=== PATIENT | female | born 1960 | race African-American/Black ===

== ENCOUNTER 2024-01-03 15:06 | Outpatient (AMB) | payer OTHER, SELFPAY ==
--- NOTE | 2024-01-03 15:11 | A.OFFVIS_ITS ---
Vital Signs 01/03/24 15:17 Height 5 ft 2 in Weight 175 lb BMI 32.0 BP 126/70 Blood Pressure Location Rt brachial Position Sitting Pulse 60 Pulse Source Pulse Oximeter Pulse Oximetry (%) 100 Oxygen Delivery Method Room Air Intake Visit Reasons: [id number] Intake Note: Patient presents fort narcolepsy Allergies acetaminophen [From Percocet] Allergy (Severe, Verified 12/29/23 11:49) THROAT SWELLING oxycodone [From Percocet] Allergy (Severe, Verified 12/29/23 11:49) THROAT SWELLING hydrocodone [From Vicodin] Allergy (Unknown, Verified 12/29/23 11:49) Unknown Sulfa (Sulfonamide Antibiotics) Allergy (Unknown, Verified 12/29/23 11:49) Unknown BACTRIM Allergy (Unknown, Uncoded 12/29/23 11:49) Unknown HPI Comments Details: 63-yr-old female presents for new in-person patient visit for sleep consultation concerning for narcolepsy. Patient reports she has symptoms of excessive daytime sleepiness. Her father had narcolepsy- easily fell asleep even during conversations. Her sister has narcolepsy and uses a CPAP- and can still easily fall asleep. Pt herself has had excessive daytime sleepiness, has poor sleep quality- has knee pain, hands tingling, body pains. Is easily awakened. Wakes up exhausted. She has always needed to be active to stay awake- even when in school. Sleep questionnaire: Have you ever been diagnosed with a sleep disorder? No Have you ever had a sleep study in the past? No Have you ever been treated for a sleep disorder? No Do you take medications for a sleep disorder? Taking Tylenol PM. Do you have difficulty initiating sleep? No Do you have difficulty maintaining sleep? Yes Do you wake up tired? Yes Do you have daytime tiredness or fatigue? Yes Do you easily fall asleep when inactive? Yes Do you snore? Yes Do you wake up gasping at night? No Do you have episodes of apneas? No Do you have episodes of nocturnal chest pain or dyspnea? Occasional shoulder/chest pain- now thinks r/t carpal tunnel syndrome. She is scheduled for a LUE EMG/NCS. Do you have bruxism? No Do you have headaches upon awakening? Yes- dull cloudy headache, hot shower helps. Do you wake up with dry mouth or throat? Some Do you have GERD? No Do you have nocturia? Yes- she thinks because she drinks a lot of water Do you have nocturnal leg cramps? Yes- at rest- recently was told she has plantar fascitis- and was referred to PT. Do you have symptoms of restless legs? Yes, and has heaviness. She is f/b vascular. Using compression stockings which helps- even on a 6-7 [address] ride. Do you act out your dreams? Has vivid dreams. Has PTSD r/t her son's (murdered)- and she is yelling and resisting. Do you have sleep paralysis? No Do you ever have hypnogenic hallucinations? Has woken up feeling that the dream is real. Do you dream quickly? Yes. Hypersomnolence questionnaire: Have you ever had episodes of sudden weakness? Denies Have you ever had episodes of sudden weakness associated with strong emotions? Denies. If she is overwhelmed, she can sleep easily. Sleep hygiene questionnaire: What is your usual sleep routine? Usual bedtime is at 10pm; Usual wake-up time is at 7-8:30am (depending on grandchildren's school schedule). Do you take naps? Yes- when time permits Is your sleep environment cool, dark, and quiet? Yes Do you exercise? Working on walking/exercising more Do you take caffeine or other stimulants? Drinking mushroom coffee- 1 in the am. Taking matcha tea as well. Do you use electronics in bed? Yes- phone, may scroll through emails but then puts it down. May watch TV when she wakes up. What is your work schedule? 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 [facility] Medical History (Updated 01/03/24 @ 16:06 by PILAR Ordonez) Anemia Osteoarthritis Cardiac murmur, unspecified HTN (hypertension) Type 2 diabetes mellitus Ascending aortic aneurysm Hyperlipidemia Surgical History H/O: hysterectomy H/O total knee replacement Hx laparoscopic cholecystectomy Family History Mother HTN (hypertension) Alzheimer dementia Father Diabetes Sister Diabetes Social History (Reviewed 01/03/24 @ 15:18 by LINSEY Leal Alcohol intake: current Patient Tobacco Use Status: Former Tobacco user Physical Exam Vital Signs: Last Vital Signs Pulse 60 01/03/24 15:17 BP 126/70 01/03/24 15:17 Pulse Ox 100 01/03/24 15:17 Oxygen Delivery Method Room Air 01/03/24 15:17 BMI result Body Mass Index 32.0 Const General: no acute distress Orientation/consciousness: patient oriented x3 HEENT Other: Mallampati stage 4 Resp Effort & Inspection: normal respiratory effort and able to speak in complete sentences Neuro General: patient oriented x3 Psych Mental Status: mental status grossly normal Speech and movement: Clear speech present Attitude: cooperative Assessment & Plan Assessment & Plan (1) Excessive daytime sleepiness: Code(s): G47.19 - Other hypersomnia Category: Medical (2) Paresthesia of left upper extremity: Code(s): R20.2 - Paresthesia of skin Category: Medical (3) Muscle cramps: Code(s): R25.2 - Cramp and spasm Category: Medical (4) Hypersomnia: Code(s): G47.10 - Hypersomnia, unspecified Category: Medical (5) Snoring: Code(s): R06.83 - Snoring Category: Medical (6) Family history of narcolepsy: Code(s): Z82.0 - Family history of epilepsy and other diseases of the nervous system Category: Medical Plan Pt is advised to undergo: Labs to assess for common etiologies of daytime sleepiness, restlessness, and leg cramps. In-lab PSG w/ MSLT- to assess sleep quality and for hypersomnia vs narcolepsy. Advised to hold OTC sleep aides, such as Tylenol PM, benadryl for 2-3 weeks prior to the sleep study. Advised that if the baseline-PSG portion of study does show sleep apnea, the MSLT portion of study will not be completed until after sleep apnea tx is initiated. Monitor am headaches. Will f/u with pt after study to discuss results and appropriate treatment options. Pt to call with any worsening concerns or questions. Orders: Orders Vitamin B12 and Folate 01/04/24 D64.9 - Anemia, unspecified, E55.9 - Vitamin D deficiency, unspecified, E78.5 - Hyperlipidemia, unspecified, G47.10 - Hypersomnia, unspecified, I10 - Essential (primary) hypertension, R20.2 - Paresthesia of skin, R25.2 - Cramp and spasm TSH reflex Free T4 01/04/24 D64.9 - Anemia, unspecified, E55.9 - Vitamin D deficiency, unspecified, E78.5 - Hyperlipidemia, unspecified, G47.10 - Hypersomnia, unspecified, I10 - Essential (primary) hypertension, R20.2 - Paresthesia of skin, R25.2 - Cramp and spasm Vitamin D 25-OH (D2 and D3) 01/04/24 D64.9 - Anemia, unspecified, E55.9 - Vitamin D deficiency, unspecified, E78.5 - Hyperlipidemia, unspecified, G47.10 - Hypersomnia, unspecified, I10 - Essential (primary) hypertension, R20.2 - Par esthesia of skin, R25.2 - Cramp and spasm Complete Blood Count Auto Diff 01/04/24 D64.9 - Anemia, unspecified, E55.9 - Vitamin D deficiency, unspecified, E78.5 - Hyperlipidemia, unspecified, G47.10 - Hypersomnia, unspecified, I10 - Essential (primary) hypertension, R20.2 - Paresthesia of skin, R25.2 - Cramp and spasm Comprehensive Met. Panel 01/04/24 D64.9 - Anemia, unspecified, E55.9 - Vitamin D deficiency, unspecified, E78.5 - Hyperlipidemia, unspecified, G47.10 - Hypersomnia, unspecified, I10 - Essential (primary) hypertension, R20.2 - P aresthesia of skin, R25.2 - Cramp and spasm Magnesium 01/04/24 D64.9 - Anemia, unspecified, E55.9 - Vitamin D deficiency, unspecified, E78.5 - Hyperlipidemia, unspecified, G47.10 - Hypersomnia, unspecified, I10 - Essential (primary) hypertension, R20.2 - Paresthesia of skin, R25.2 - Cramp and spasm RT sleep testing - MSLT 01/03/24 G47.10 - Hypersomnia, unspecified, G47.19 - Other hypersomnia, R06.83 - Snoring, Z82.0 - Family history of epilepsy and other diseases of the nervous system RT PSG in-lab sleep study 01/03/24 G47.10 - Hypersomnia, unspecified, G47.19 - Other hypersomnia, R06.83 - Snoring, Z82.0 - Family history of epilepsy and other diseases of the nervous system Drug Screen Urine 01/04/24 G47.10 - Hypersomnia, unspecified, G47.19 - Other hypersomnia Creatine Kinase Total 01/04/24 D64.9 - Anemia, unspecified, E55.9 - Vitamin D deficiency, unspecified, E78.5 - Hyperlipidemia, unspecified, G47.10 - Hypersomnia, unspecified, I10 - Essential (primary) hypertension, R20.2 - Paresthesia of skin, R25.2 - Cramp and spasm Ferritin 01/04/24 D64.9 - Anemia, unspecified, E55.9 - Vitamin D deficiency, unspecified, E78.5 - Hyperlipidemia, unspecified, G47.10 - Hypersomnia, unspecified, I10 - Essential (primary) hypertension, R20.2 - Paresthesia of skin, R25.2 - Cramp and spasm IRON PROFILE 01/04/24 D64.9 - Anemia, unspecified, E55.9 - Vitamin D deficiency, unspecified, E78.5 - Hyperlipidemia, unspecified, G47.10 - Hypersomnia, unspecified, I10 - Essential (primary) hypertension, R20.2 - Paresthesia of skin, R25.2 - Cramp and spasm Coding Level of Care Code New Pt Level 4 (72384) Diagnoses Excessive daytime sleepiness G47.19 Paresthesia of left upper extremity R20.2 Muscle cramps R25.2 Hypersomnia G47.10 Snoring R06.83 Family history of narcolepsy Z82.0 [place] Sleepiness Scale Questions Sitting and reading: high chance of dozing Watching TV: high chance of dozing Sitting inactive in a theater, movie etc.: high chance of dozing As a passenger in a car for an hour without break: high chance of dozing Lying down in the afternoon when circumstances permit: high chance of dozing Sitting and talking to someone: high chance of dozing Sitting quietly after lunch without alcohol: high chance of dozing In a car, while stopped for a few minutes in the traffic: slight chance of dozing ESS < 10: normal, ESS > 12: pathologic: 22
[2024-01-03 15:17] VITALS: BP 126/70; PULSE 60; O2SAT 100; BMI 32.0
== END 2024-01-03 16:17 | disposition home or self-care (01) ==
PROVIDERS: PCP Internal Medicine; Visit Provider Nurse Practitioner Family
DX: G47.19 Other hypersomnia (principal); R20.2 Paresthesia of skin; R25.2 Cramp and spasm; G47.10 Hypersomnia, unspecified; R06.83 Snoring; Z82.0 Family history of epilepsy and other diseases of the nervous system
CPT/HCPCS: 99204

== ENCOUNTER → 2024-01-03 15:06 | Outpatient (BNVA) | payer OTHER, SELFPAY | PROVIDERS: PCP Internal Medicine; Visit Provider Nurse Practitioner Family | DX: G47.19 Other hypersomnia (principal); G47.10 Hypersomnia, unspecified; R20.2 Paresthesia of skin; R25.2 Cramp and spasm; R06.83 Snoring; Z82.0 Family history of epilepsy and other diseases of the nervous system | CPT/HCPCS: 99202 ==

== ENCOUNTER 2024-01-04 13:00 | Outpatient (REF) | payer OTHER, SELFPAY ==
[2024-01-04 17:41] LABS: MANUAL DIFF FLAG NO
[2024-01-04 17:54] LABS: Amphetamine Screen Urine Not Detected (Not Detect); Barbiturates, Urine Not Detected (Not Detect); Benzodiazepines Screen Urine Not Detected (Not Detect); Buprenorphine Scr Not Detected (Not Detect); Cannabinoid Screen Urine Not Detected (Not Detect); Cocaine Screen Urine Not Detected (Not Detect); Fentanyl, urine Not Detected (Not Detect); Methadone Screen, Urine Not Detected (Not Detect); Opiate Screen Urine Not Detected (Not Detect); Oxycodone Screen Urine Not Detected (Not Detect); Phencyclidine Screen Urine Not Detected (Not Detect)
[2024-01-04 17:57] LABS: Basophils Percent Auto 0.4 % (0-2); Eosinophils Absolute Auto 0.1 X10*3/uL (0.0-0.4); Eosinophils Percent Auto 0.9 % (0-4); Hematocrit 42.8 % (37.0-47.0); Hemoglobin 14.3 g/dl (12.0-16.0); Imm Gran Abs Auto 0.01 X10*3/uL (0.00-0.03); Imm Gran Pct Auto 0.2 % (0.0-0.4); Lymphocytes Absolute Auto 1.3 X10*3/uL (1.2-4.9); Lymphocytes Percent Auto 24.8 % (20-40); Mean Corpuscular HGB Conc 33.4 g/dl (31.0-35.0); Mean Corpuscular Hemoglobin 28.8 pg (27.0-33.0); Mean Corpuscular Volume 86.1 fL (80.0-98.0); Mean Platelet Volume 10.8 fL (9.4-12.3); Monocytes Absolute Auto 0.5 X10*3/uL (0.1-1.2); Monocytes Percent Auto 9.4 % (2-11); Neutrophils Absolute Auto 3.4 x10*3/uL (2.0-8.3); Neutrophils Percent Auto 64.3 % (45-73); Platelet Count 253 X10*3/uL (160-400); Red Blood Count 4.97 X10*6/uL (4.20-5.50); Red Cell Distribution Width 13.9 % (11.0-16.0); White Blood Count 5.3 X10*3/uL (4.8-10.8)
[2024-01-04 18:12] LABS: Alanine Aminotransferase 19 U/L (0-31); Albumin Level 4.6 g/dL (3.5-5.0); Alkaline Phosphatase 59 U/L (39-117); Anion Gap 11 (12-20); Aspartate Amino Transferase 16 U/L (5-31); Bilirubin Total 0.9 mg/dL (0.0-1.0); Blood Urea Nitrogen 13 mg/dL (9-16); Calcium 9.6 mg/dL (8.4-10.2); Carbon Dioxide 30 mmol/L (22-29); Chloride 103 mmol/L (96-108); Estimated Glomerular Filt Rate > 60; Glucose Random 117 mg/dL (60-115); Iron 79 mcg/dL (30-160); Percent Iron Saturation 27 % (15-50); Potassium 3.4 mmol/L (3.3-5.1); Sodium 141 mmol/L (135-145); Total Iron Binding Capacity 296 mcg/dL (228-428); Total Protein 7.6 g/dL (6.5-8.0); Unsaturated Iron Binding 217 ug/dL
[2024-01-04 18:31] LABS: Ferritin 222 ng/mL (10-250); TSH reflex Free T4 0.87 uIU/mL (0.32-4.0)
[2024-01-04 18:38] LABS: Folate 12.2 ng/mL (> or = 4.0); Vitamin B12 439 pg/mL (200-900)
[2024-01-08 17:24] LABS: Vitamin D 25-OH, D2 <4 ng/mL; Vitamin D 25-OH, D3 27 ng/mL; Vitamin D 25-OH, Total 27 ng/mL (30-100)
== END 2024-01-04 13:01 | disposition home or self-care (01) ==
LOC: HO.HKASLDS 13:00
PROVIDERS: Visit Provider Nurse Practitioner Family
DX: D64.9 Anemia, unspecified (principal); R25.2 Cramp and spasm; R20.2 Paresthesia of skin; E55.9 Vitamin D deficiency, unspecified; E78.5 Hyperlipidemia, unspecified; I10 Essential (primary) hypertension; G47.19 Other hypersomnia
CPT/HCPCS: 80053; 80307; 82306; 82550; 82607; 82728; 82746; 83540; 83735; 84443; 85025

== ENCOUNTER → 2024-04-11 19:30 | Outpatient (REF) | payer MEDICARE, MEDICAID, SELFPAY | LOC: HO.SL 19:30 | PROVIDERS: PCP Internal Medicine; Visit Provider Nurse Practitioner Family | DX: G47.10 Hypersomnia, unspecified (principal); G47.19 Other hypersomnia; R06.83 Snoring; Z82.0 Family history of epilepsy and other diseases of the nervous system | CPT/HCPCS: 95810 ==

== ENCOUNTER → 2024-04-11 22:10 | Outpatient (BNV) | payer MEDICARE, MEDICAID, SELFPAY | PROVIDERS: PCP Internal Medicine; Visit Provider Psychiatry & Neurology Neurology | DX: G47.33 Obstructive sleep apnea (adult) (pediatric) (principal) | CPT/HCPCS: 95810 ==

== ENCOUNTER 2024-11-26 10:10 | Outpatient (AMB) | payer OTHER, MEDICARE, MEDICAID, SELFPAY ==
[2024-11-26 10:18] VITALS: BP 170/100; PULSE 62; O2SAT 95; BMI 32.6
--- NOTE | 2024-11-26 10:18 | A.OFFVIS_ITS ---
Vital Signs 11/26/24 10:18 Height 5 ft 2 in Weight 178 lb BMI 32.6 BP 170/100 H Blood Pressure Location Rt brachial Position Sitting Pulse 62 Pulse Source Pulse Oximeter Pulse Oximetry (%) 95 Oxygen Delivery Method Room Air Intake Visit Reasons: follow up Intake Note: Patient presents follow up for excessive daytime sleepiness, on amoxicillin 25 mg for dental work. Patient continues having issues with sleep System Configuration Specialist Required: No Accompanied by: Self / Same As Patient Allergies acetaminophen (From Percocet) Allergy (Severe, Verified 11/26/24 10:22) THROAT SWELLING oxycodone (From Percocet) Allergy (Severe, Verified 11/26/24 10:22) THROAT SWELLING hydrocodone (From Vicodin) Allergy (Unknown, Verified 11/26/24 10:22) Unknown Sulfa (Sulfonamide Antibiotics) Allergy (Unknown, Verified 11/26/24 10:22) Unknown BACTRIM Allergy (Unknown, Uncoded 12/29/23 11:49) Unknown Medication List - Last Reconciled 11/26/24 by PILAR Ordonez amoxicillin 500 mg PO DAILY PRN cholecalciferol (vitamin D3) 25 mcg PO DAILY 30 days hydrochlorothiazide 25 mg PO DAILY HPI Comments Details: History of Present Illness The patient is a 64-year-old female presenting with follow-up for sleep apnea and evaluation of periodic limb movement disorder. The patient underwent a sleep study which revealed mild sleep apnea with an apnea-hypopnea index (AHI) of 10 per hour, increasing to 29 times per hour during REM sleep. The lowest recorded oxygen saturation was 78%, primarily during REM sleep, with an average oxygen level of 92%. The patient reports difficulty using CPAP due to claustrophobia, which affects her ability to tolerate the device during sleep studies. The patient also experiences periodic limb movements of sleep, with a periodic limb movement index of 58 per hour and an arousal index of 19 per hour, likely contributing to her daytime sleepiness. She reports frequent leg movements duri ng sleep and while awake, such as during long drives and air travel, which cause discomfort and require stretching. After the sleep study, patient was advised to undergo follow-up in-lab PAP PSG study to assess optimal PAP treatment pressures. However, patient was unable to do study as she had a change in her insurance. However, today patient states that she likely would not be able to use PAP therapy due due severe claustrophobia. She does know, that she sees the ear nose and throat office in [place] for ear wax removal. Patient does have a adjustable bed intensive sleep with her head elevated at home-however during the sleep study, she slept flat 1 sleep apnea was worse in supine position. The patient has a history of anemia related to heavy menstrual cycles and endometriosis, which was treated with a hysterectomy. She previously took iron supplements and reports no current issues with anemia. The patient has hypertension, which she manages with medication, although she re ports challenges with adherence due to side effects of urinary frequency and scheduling conflicts. She experienced an episode of chest pain, initially suspected to be a heart attack, but was later attributed to gas. Review of Systems - Respiratory: Reports difficulty sleeping due to sleep apnea. Denies cough or wheezing. - Neurological: Reports frequent leg movements during sleep and while awake. Denies headaches or dizziness. - Cardiovascular: Reports chest pain previously attributed to gas. Denies current chest pain or palpitations. - Hematologic: Reports history of anemia related to menstrual cycles. Denies current symptoms of anemia. Results - Sleep Study: Mild sleep apnea with AHI of 10 per hour, increasing to 29 per hour during REM sleep. Lowest O2 saturation was 78%, average was 92%. - Periodic Limb Movement Index: 58 movements per hour, with an arousal index of 19 per hour. , Initial HPI: 63-yr-old female presents for new in-person patient visit for sleep consultation concerning for narcolepsy. Patient reports she has symptoms of excessive daytime sleepiness. Her father had narcolepsy- easily fell asleep even during conversations. Her sister has narcolepsy and uses a CPAP- and can still easily fall asleep. Pt herself has had excessive daytime sleepiness, has poor sleep quality- has knee pain, hands tingling, body pains. Is easily awakened. Wakes up exhausted. She has always needed to be active to stay awake- even when in school. Sleep questionnaire: Have you ever been diagnosed with a sleep disorder? No Have you ever had a sleep study in the past? No Have you ever been treated for a sleep disorder? No Do you take medications for a sleep disorder? Taking Tylenol PM. Do you have difficulty initiating sleep? No Do you have difficulty maintaining sleep? Yes Do you wake up tired? Yes Do you have daytime tiredness or fatigue? Yes Do you easily fall asleep when inactive? Yes Do you snore? Yes Do you wake up gasping at night? No Do you have episodes of apneas? No Do you have episodes of nocturnal chest pain or dyspnea? Occasional shoulder/chest pain- now thinks r/t carpal tunnel syndrome. She is scheduled for a LUE EMG/NCS. Do you have bruxism? No Do you have headaches upon awakening? Yes- dull cloudy headache, hot shower helps. Do you wake up with dry mouth or throat? Some Do you have GERD? No Do you have nocturia? Yes- she thinks because she drinks a lot of water Do you have nocturnal leg cramps? Yes- at rest- recently was told she has plantar fascitis- and was referred to PT. Do you have symptoms of restless legs? Yes, and has heaviness. She is f/b vascular. Using compression stockings which helps- even on a 6-7 [address] train ride. Do you act out your dreams? Has vivid dreams. Has PTSD r/t her son's (murdered)- and she is yelling and resisting. Do you have sleep paralysis? No Do you ever have hypnogenic hallucinations? Has woken up feeling that the dream is real. Do you dream quickly? Yes. Hypersomnolence questionnaire: Have you ever had episodes of sudden weakness? Denies Have you ever had episodes of sudden weakness associated with strong emotions? Denies. If she is overwhelmed, she can sleep easily. Sleep hygiene questionnaire: What is your usual sleep routine? Usual bedtime is at 10pm; Usual wake-up time is at 7-8:30am (depending on grandchildren's school schedule). Do you take naps? Yes- when time permits Is your sleep environment cool, dark, and quiet? Yes Do you exercise? Working on walking/exercising more Do you take caffeine or other stimulants? Drinking mushroom coffee- 1 in the am. Taking matcha tea as well. Do you use electronics in bed? Yes- phone, may scroll through emails but then puts it down. May watch TV when she wakes up. What is your work schedule? 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 [facility] Medical History (Updated 11/26/24 @ 11:13 by PILAR Ordonez) Anemia Osteoarthritis Cardiac murmur, unspecified HTN (hypertension) Type 2 diabetes mellitus Ascending aortic aneurysm Hyperlipidemia Surgical History H/O: hysterectomy H/O total knee replacement Hx laparoscopic cholecystectomy Family History Mother HTN (hypertension) Alzheimer dementia Father Diabetes Sister Diabetes Social History Alcohol intake: current Patient Tobacco Use Status: Former Tobacco user Physical Exam Vital Signs: Last Vital Signs Pulse 62 11/26/24 10:18 BP 170/100 H 11/26/24 10:18 Pulse Ox 95 11/26/24 10:18 Oxygen Delivery Method Room Air 11/26/24 10:18 BMI result Body Mass Index 32.6 Const General: no acute distress Orientation/consciousness: patient oriented x3 Resp Effort & Inspection: normal respiratory effort and able to speak in complete sentences Neuro General: patient oriented x3 Psych Mental Status: mental status grossly normal Speech and movement: Clear speech present Attitude: cooperative Assessment & Plan Assessment & Plan (1) Obstructive sleep apnea: Code(s): G47.33 - Obstructive sleep apnea (adult) (pediatric) Category: Medical (2) Excessive daytime sleepiness: Code(s): G47.19 - Other hypersomnia Category: Medical (3) Paresthesia of left upper extremity: Code(s): R20.2 - Paresthesia of skin Category: Medical (4) Muscle cramps: Code(s): R25.2 - Cramp and spasm Category: Medical (5) Hypersomnia: Code(s): G47.10 - Hypersomnia, unspecified Category: Medical (6) Snoring: Code(s): R06.83 - Snoring Category: Medical (7) Family history of narcolepsy: Code(s): Z82.0 - Family history of epilepsy and other diseases of the nervous system Category: Medical (8) Mild obstructive sleep apnea: Code(s): G47.33 - Obstructive sleep apnea (adult) (pediatric) Category: Medical (9) Restless leg syndrome: Code(s): G25.81 - Restless legs syndrome Category: Medical (10) Periodic limb movements of sleep: Code(s): G47.61 - Periodic limb movement disorder Category: Medical Plan Discussion Notes During the visit, I discussed the results of the sleep study, highlighting the presence of mild sleep apnea and periodic limb movement disorder. We explored the challenges with CPAP usage due to the patient's claustrophobia and con sidered alternative management strategies, including seeing an ENT specialist. I recommended elevating the head during sleep and discussed the potential use of medications like gabapentin for limb movements. We also reviewed the patient's hypertension management and the importance of consistent medication adherence to reduce stroke risk. Plan - Recommend follow-up with an ENT specialist to evaluate potential anatomical causes of sleep apnea and explore alternatives to CPAP therapy. - Suggest elevating the head during sleep to potentially alleviate sleep apnea symptoms. - Consider medication options such as gabapentin for managing periodic limb movements and improving sleep quality. - Conduct laboratory tests to assess B12, folate, iron profile, ferritin, vitamin D, and thyroid function to rule out deficiencies contributing to limb movements. - Encourage consistent use of antihypertensive medication and discuss alternative options with the primary care provider to minimize side effects and improve adherence. Patient was informed and verbally consented to the use of an ambient scribe for clinic note documentation during this visit. Patient Instructions - Follow up with the ENT specialist as scheduled to discuss sleep apnea management options. - Sleep with your head elevated to help reduce sleep apnea symptoms. - Information shared arm patient education resources ?navigating life with restless leg syndrome and hope by Dr. Caceres. - Consider taking prescribed medications, such as gabapentin, for limb movements if lab results are within normal limits. - Ensure regular intake of blood pressure medication and discuss any side effects with your doctor. - Complete the recommended lab tests to check for any deficiencies. Will follow-up upon review of above and patient to follow-up in clinic in 6 months or sooner prn. Orders: Orders Ferritin Today D64.9 - Anemia, unspecified, E55.9 - Vitamin D deficiency, unspecified, G47.61 - Periodic limb movement disorder, I10 - Essential (primary) hypertension, R25.2 - Cramp and spasm Methylmalonic Acid Today D64.9 - Anemia, unspecified, E55.9 - Vitamin D deficiency, unspecified, G47.61 - Periodic limb movement disorder, I10 - Essential (primary) hypertension, R25.2 - Cramp and spasm IRON PROFILE Today D64.9 - Anemia, unspecified, E55.9 - Vitamin D deficiency, unspecified, G47.61 - Periodic limb movement disorder, I10 - Essential (primary) hypertension, R25.2 - Cramp and spasm Complete Blood Count Auto Diff Today D64.9 - Anemia, unspecified, E55.9 - Vitamin D deficiency, unspecified, G47.61 - Periodic limb movement disorder, I10 - Essential (primary) hypertension, R25.2 - Cramp and spasm Comprehensive Met. Panel Today D64.9 - Anemia, unspecified, E55.9 - Vitamin D deficiency, unspecified, G47.61 - Periodic limb movement disorder, I10 - Essential (primary) hypertension, R25.2 - Cramp and spasm TSH reflex Free T4 Today D64.9 - Anemia, unspecified, E55.9 - Vitamin D defici ency, unspecified, G47.61 - Periodic limb movement disorder, I10 - Essential (primary) hypertension, R25.2 - Cramp and spasm Magnesium Today D64.9 - Anemia, unspecified, R25.2 - Cramp and spasm Vitamin B12 and Folate Today D64.9 - Anemia, unspecified, E55.9 - Vitamin D deficiency, unspecified, G47.61 - Periodic limb movement disorder, I10 - Ess ential (primary) hypertension, R25.2 - Cramp and spasm Vitamin D 25-OH (D2 and D3) Today D64.9 - Anemia, unspecified, E55.9 - Vitamin D deficiency, unspecified, G47.61 - Periodic limb movement disorder, I10 - Essential (primary) hypertension, R25.2 - Cramp and spasm Referrals Ear/Nose/Throat Referral G47.33 - Obstructive sleep apnea (adult) (pediatric) Coding Level of Care Code Est Pt Level 4 (52465) Diagnoses Obstructive sleep apnea G47.33 Excessive daytime sleepiness G47.19 Paresthesia of left upper extremity R20.2 Muscle cramps R25.2 Hypersomnia G47.10 Snoring R06.83 Family history of narcolepsy Z82.0 Mild obstructive sleep apnea G47.33 Restless leg syndrome G25.81 Periodic limb movements of sleep G47.61
--- OUTSIDE RECORDS SUMMARY | 2024-11-26 11:15 | XMS_ITS | Encounter Summary ---
Author Organization [facility] Address [address] [place] [address] Care Team Providers Care Implementation Project Coordinator Name Role Phone Morgan David MD Primary Care Provider [phone] Filippo Emerson MD Unavailable Morgan David MD Primary Care Provider [phone] Tyrone Carrasco PA-C Unavailable Unavailable Filippo Cortez DPM Unavailable [phone] Encounter Details Date Type Department Care Team Description 08/15/2017 Business Doc Medical Records [address] [place] [id number] Abstract, Provider Social History Tobacco Use Types Packs/Day Years Used Date Smoking Tobacco: Former Cigarettes Q uit: 05/29/1977 Smokeless Tobacco: Never Alcohol Use Standard Drinks/Week Comments Yes 0 (1 standard drink = 0.6 oz pur e alcohol) once a month Alcohol Habits Answer Date Recorded How often do you have a drink containing alcohol ? Monthly or less 02/20/2024 How many drinks containing a lcohol do you have on a typical day when you are drinking? 1 or 2 02/20/2024 How often do you have six or more drinks on one occasion? Never 02/20/2024 Social Isolation Answer Date Recorded In a typical week, how many times do you talk on the phone with family, friends, or neighbors? More than three times a week 02/20/2024 How often do you get togethe r with friends or relatives? Once a week 02/20/2024 How often do you attend chur or caodaism services? 1 to 4 times per year 02/20/2024 Do you belong to any clubs o r organizations such as mandaeism groups, unions, fraternal or athletic groups, or school groups? No 02/20/2024 How often do you attend meet ings of the clubs or organizations you belong to? Never 02/20/2024 Are you now , , , , never or living with a partner? 02/20/2024 Physical Activity Answer Date Recorded On average, how many days pe r week do you engage in moderate to strenuous exercise (like walking fast, running, jogging, dancing, swimming, biking, or other activities that cause a light or heavy sweat)? 0 days 02/20/2024 On average, how many minutes do you engage in exercise at this level? 0 min 02/20/2024 Stress Answer Date Recorded Do you feel stress - tense, restless, nervous, or anxious, or unable to sleep at night because your mind is troubled all the time - these days? Rather much 02/20/2024 Financial Resource Strain Answer Date R ecorded How hard is it for you to pa y for the very basics like food, housing, medical care, and heating? Somewhat hard 02/20/2024 Intimate Partner Violence Answer Date R ecorded Within the last year, have y ou been afraid of your partner or ex-partner? No 02/20/2024 Within the last year, have y ou been humiliated or emotionally abused in other ways by your partner or ex-partner? No Within the last year, have y ou been kicked, hit, slapped, or otherwise physically hurt by your partner or ex-partner? No 02/20/2024 Within the last year, have y ou been raped or forced to have any kind of sexual activity by your partner or ex-partner? No 02/20/2024 Food Insecurity Answer Date Recorded Within the past 12 months, y ou worried that your food would run out before you got money to buy more. Never true 02/20/2024 Within the past 12 months, t he food you bought just didn't last and you didn't have money to get more. Never true 02/20/2024 Transportation Needs Answer Date Record ed In the past 12 months, has l ack of transportation kept you from medical appointments or from getting medications? No 01/28 In the past 12 months, has l ack of transportation kept you from meetings, work, or getting things needed for daily living? No 02/20/2024 Housing Stability Answer Date Recorded In the last 12 months, was t here a time when you were not able to pay the mortgage or rent on time? No 02/20/2024 In the last 12 months, how many places have you lived? 1 02/20/2024 In the last 12 months, was t here a time when you did not have a steady place to sleep or slept in a fpc (including now)? No 02/20/2024 Sex Assigned at Date Recorded Not on file Job Start Date Occupation Industry Not on file Not on file Not on file documented as of this encounter Plan of Treatment Not on file documented as of this encounter Visit Diagnoses Not on filedocumented in this encounter Care Teams Implementation Project Coordinator Relationship Specialty Start Date End Date Morgan David MD [address] [place] [address] PCP - General Internal Medicine 06/02/16 02/08/23 Morgan David MD [address] [place] [address] PCP - General Internal Medicine 06/23/23 Filippo Emerson MD [address] [address] Specialist Cardiovascular Disease 11/14/22 Tyrone Carrasco PA-C [address] [facility] [address] [place] [address] Specialist Physiatry 02/20/24 Filippo Cortez DPM [address] [address] Podiatry 02/20/24 documented as of this encounter
--- OUTSIDE RECORDS SUMMARY | 2024-11-26 11:16 | XMS_ITS | Clinical Summary ---
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 Role Phone Morgan David MD Primary Care Provider [phone] Allergies Active Allergy Reactions Criticality Noted Date Comments Adhesive Tape-Silicones 09/29/2014 Hydrocodone-Acetaminophen 06/11/2013 Lisinopril Cough 06/30/2023 Oxycodone-Acetaminophen Swelling 01/31/2019 Tongue and throat swell up Sulfa (Sulfonamide Antibiotics) 06/11/2013 Sulfamethoxazole-Trimethopr im 06/11/2013 Medications ciclopirox (LOPROX) 0.77 % gel Apply to toe nails daily 4 Active Autolet lancing device Use to check blood sugar two times daily 1 Active FREESTYLE LANCETS MISC 1 Device by Does not apply route 2 times daily. Use to test blood sugars twice daily 3 Active blood sugar diagnostic (FreeStyle Lite Strips) test strip 1 Strip by In Vitro route 4 times daily. Use to test blood sugars twice daily 1 Active blood-glucose meter kit Use to test blood sugars twice daily 1 Active diclofenac (VOLTAREN) 1 % topical gel Apply 4 g topically 2 (two) times a day. Active hydroCHLOROthia zide (HYDRODIURIL) 25 mg tablet Take 1 tablet (25 mg total) by mouth 1 (one) time each day. 30 each 5 Active Active Problems Problem Noted Date Diagnosed Date Hyperlipidemia 06/23/2023 Ascending aorta dilatation (CMS/HCC V24) 023 Type 2 diabetes mellitus, co ntrolled ([facility] V24, [facility] V28) 07/16/2019 Overview (03/01/2024): A1c 6.9% Jun 2019 HTN (hypertension) 06/11/2013 Overview (03/01/2024): Renal ultrasound (11/15/17) : Normal appearance of kidney bilaterally. No renal artery stenosis Dr marni jacobs previous pcp Murmur, cardiac 06/11/2013 Osteoarthritis 06/11/2013 Overview (03/01/2024): Rt tkr dr roni jaramillo Immunizations Name Administration Dates Next Due Tdap Tetanus diptheria acell ular pertussis (Boostrix; Adacel) 7yo and older 12/09/2013 Surgical History Surgery Date Site/Laterality Comments TOTAL KNEE ARTHROPLASTY 2014 PROCEDURE: HISTORICAL TOTAL KNEE REPLACE; COMMENT: 2014 and 2021 HYSTERECTOMY PROCEDURE: HISTORICAL HYSTERECTOMY; COMMENT: partial COLONOSCOPY 09/29/2014 PROCEDURE: HISTORICAL COLONOSCOPY; COMMENT: tiny polyp, not retrieved; tics; repeat in 5 yrs OTHER SURGICAL HISTORY 01/18/2019 PROCEDURE: [place] LAPS SURG CHOLECYSTECTOMY W/CHOLANGIOGRAPHY; COMMENT: Dr. Keenan Medical History Medical History Date Comments HTN (hypertension) 06/11/2013 DX:HTN (hyper tension); COMMENT: Dr marni jacobs previous pcp Murmur, cardiac 06/11/2013 DX:Murmur, cardi ac Osteoarthritis 06/11/2013 DX:Osteoarthriti s; COMMENT: Rt tkr dr roni jaramillo Hyperlipidemia 06/23/2023 DX:Hyperlipidemi a Ascending aorta dilatation (CMS/HCC V24) 02/17/20 23 DX:Ascending aorta dilatation (HCC) Family History Medical History Relation Name Comments Ovarian cancer Aunt 1 Lung cancer Aunt 2 Colon cancer Aunt 3 Other: Other Brother Diabetes Father CAD, Colon CA ( 77) Heart attack Father Alzheimer's disease Mother Hypertension Mother Glaucoma Breast cancer Other pa 1st cousin paternal aunt dx in her 60's Diabetes Sister HTN Other: murdered Son 1 Pancreatic cancer Uncle Relation Name Status Comments Aunt 1 Aunt 2 Aunt 3 Brother 1,he in [facility] Father Mother Other pa 1st cousin Sister Alive 1 Son 1 Son 2 Alive Son 3 Alive Uncle Social History Tobacco Use Types Packs/Day Years Used Date Smoking Tobacco: Former Cigarettes Q uit: 05/29/1977 Smokeless Tobacco: Never Alcohol Use Standard Drinks/Week Comments Yes 0 (1 standard drink = 0.6 oz pur e alcohol) Comments No Sex and Gender Information Value Date Recorded Sex Assigned at Female 08/25/2024 12:47 AM EDT Legal Sex Female 9:53 AM EST Gender Identity Female 08/25/2024 12:47 AM EDT Sexual Orientation Straight 08/25/2024 12 :47 AM EDT Obstetrics History Last Filed Vital Signs Vital Sign Reading Time Taken Comments Blood Pressure 182/88 08/25/2024 4:07 AM EDT Pulse 71 08/25/2024 4:07 AM EDT Temperature 36.7 C (98.1 F) 08/24/2024 8:58 PM EDT Respiratory Rate 20 08/25/2024 4:07 AM EDT Oxygen Saturation 96% 08/25/2024 4:07 AM EDT Inhaled Oxygen Concentration - - Weight 78.5 kg (173 lb) 08/24/2024 8:58 PM EDT Height 157.5 cm (5' 2 ) 08/24/2024 8:58 PM EDT Body Mass Index 31.64 08/24/2024 8:58 PM EDT Plan of Treatment Upcoming Encounters Date Type Department Care Team (Late st Contact Info) Description 12/05/2024 9:30 AM EDT Office Visit Internal Medicine - [address] [phone] Octavio Lopez NP [address] [place] [id number] Health Maintenance Due Date Last Done Comments Diabetes: Annual Foot Exam 1969 Diabetes: Annual Retina Eye Exam 1969 Pneumococcal Vaccine: 50+ Years (1 of 2 - PCV) 1978 Pneumococcal Vaccine: Pediatrics (0 to 5 Years) and At-Risk Patients (6 to 64 Years) (1 of 2 - PCV) 1978 Zoster Vaccines (1 of 2) 2009 RSV Immunization Adult Patients (1 - Risk 60-74 years 1-dose series) 2019 Breast Cancer Screening 08/06/2021 08/07/2019 Osteoporosis Screening (Bone Density Screening) 05/07/2022 Social Influencers of Health Screening 05/07/2022 Diabetes: Annual Urine Albumin-Creatinine Ratio (uACR) 11/11/2023 11/10/2022 DTaP,Tdap,and Td Vaccines (2 - Td or Tdap) 12/10/2023 12/09/2013 Falls Risk Assessment 01/20/2024 COVID-19 Vaccine ( - 2023-2 5 season) 2024 Diabetes: Blood Sugar Contro l Test (HGBA1C) 04/20/2024 10/19/2023, 10/19/2023 Influenza Vaccine (Season Ended) 2025 Depression Screening 02/19/2025 02/20/2024 Medicare Annual Wellness Visit 02/19/2025 02/20/2024 Diabetes: Annual GFR (Glomerular Filtration Rate) 08/24/2025 08/24/2024, 06/30/2023 Hypertension/CHF/CAD Annual BMP Blood Test 08/24/2025 08/24/2024, 06/30/2023 Colorectal Cancer Screening: Colonoscopy 11/06/2025 11/06/2020 Cholesterol Screening (Lipid Panel) 10/18/2028 10/19/2023, 10/19/2023, 10/19/2023 Hepatitis C Screening Completed 12/10/2013 HIB Vaccines Aged Out No longer eligi ble based on patient's age to complete this topic HPV Vaccines Aged Out No longer eligi ble based on patient's age to complete this topic Hepatitis A Vaccines Aged Out No long er eligible based on patient's age to complete this topic Hepatitis B Vaccines Aged Out No long er eligible based on patient's age to complete this topic IPV Vaccines Aged Out No longer eligi ble based on patient's age to complete this topic MMR Vaccines Aged Out No longer eligi ble based on patient's age to complete this topic Meningococcal ACWY Vaccine Aged Out N o longer eligible based on patient's age to complete this topic Meningococcal B Vaccine Aged Out No l onger eligible based on patient's age to complete this topic RSV Immunization Patients Under 20 months Aged Out No longer eligible b ased on patient's age to complete this topic Varicella Vaccines Aged Out No longer eligible based on patient's age to complete this topic Procedures Procedure Name Priority Date/Time Associated Diagnosis Comments COMPREHENSIVE METABOLIC PANEL STAT 08/24/2024 9:04 PM EDT DEPRESSION SCREENING Routine 02/20/2024 HEMOGLOBIN A1C Routine 10/19/2023 LIPID PANEL Routine 10/19/2023 HM URINE ALBUMIN CREATININE RATIO Routine 11/10/2022 HM COLONOSCOPY Routine 11/06/2020 BRENT SCREENING DIGITAL Routine 08/07/2019 5:46 PM EDT Encounter for screening mammogram for malignant neoplasm of breast HEPATITIS C SCREENING Routine 12/10/2013 from Last 3 Months or Most Recently Relevant to Health Maintenance Results * (ABNORMAL) Comprehensive metabolic panel (08/24/2024 9:04 PM EDT) Sodium 138 133 - 145 mmol/L LAB CHEMISTRY METHOD 08/24/2024 9:35 PM EDT [facility] Potassium 3.4(L) 3.5 - 5.5 mmol/L LAB CHEMISTRY METHOD 08/24/2024 9:35 PM EDT [facility] Chloride 106 96 - 110 mmol/L LAB CHEMISTRY METHOD 08/24/2024 9:35 PM EDT [facility] CO2 28 21 - 32 mmol/L LAB CHEMISTRY METHOD 08/24/2024 9:35 PM [facility] Anion Gap 4 3 - 11 LAB CHEMISTRY METHOD 08/24/2024 9:35 PM [facility] Glucose 97 70 - 100 mg/dL LAB CHEMISTRY METHOD 08/24/2024 9:35 PM [facility] BUN 11 5 - 25 mg/dL LAB CHEMISTRY METHOD 08/24/2024 9:35 PM [facility] Creatinine 0.72 0.50 - 1.10 mg/dL LAB CHEMISTRY METHOD 08/24/2024 9:35 PM [facility] eGFR 93 >=60 mL/min/1. 73m2 LAB CHEMISTRY METHOD 08/24/2024 9:35 PM [facility] Comment:Calculation based on the Chronic Kidney Disease Epidemiology Collaboration (CKD-EPI) equation refit without adjustment for race. BUN/Creatinine Ratio 15.3 LAB CHEMISTRY METHOD 08/24/2024 9:35 PM [facility] Calcium 8.8 8.5 - 10.5 mg/dL LAB CHEMISTRY METHOD 08/24/2024 9:35 PM [facility] AST (SGOT) 19 10 - 42 unit/L LAB CHEMISTRY METHOD 08/24/2024 9:35 PM [facility] ALT (SGPT) 43 10 - 60 unit/L LAB CHEMISTRY METHOD 08/24/2024 9:35 PM [facility] Alkaline Phosphatase 85 42 - 121 unit/L LAB CHEMISTRY METHOD 08/24/2024 9:35 PM [facility] Total Protein 7.3 6.0 - 8.0 g/dL LAB CHEMISTRY METHOD 08/24/2024 9:35 PM [facility] Albumin 4.1 3.2 - 5.0 g/dL LAB CHEMISTRY METHOD 08/24/2024 9:35 PM [facility] Total Bilirubin 0.5 0.0 - 1.4 mg/dL LAB CHEMISTRY METHOD 08/24/2024 9:35 PM EDT [facility] Blood Venous blood specimen / Unknown Venipuncture / Unknown 08/24/2024 9:04 PM EDT 08/24/2024 9:10 PM EDT Susu BARKER LAB BLOOD ORDERABLES Final Re sult [facility] [address] [place] [address], * Depression Screening (02/20/2024) Pathologist [facility] Depression Screening abstracted [facility] Provider HEALTH MAINTENANCE Final Result * (ABNORMAL) Hemoglobin A1c (10/19/2023) Pathologist [facility] Hemoglobin A1C 6.9(A) <=6.5 % Blood Venous blood specimen / Unknown [facility] Provider LAB BLOOD ORDERABLES Edit ed Result - Final * Lipid panel (10/19/2023) [facility] Triglycerides 76 0 - 150 mg/dL Blood Venous blood specimen / Unknown Result [facility] Provider LAB BLOOD ORDERABLES Edit ed Result - Final * Urine Albumin Creatinine Ratio (11/10/2022) Pathologist [facility] Urine Albumin Creatinine Ratio abstracted Historical Provider HEALTH MAINTENANCE Final Result * Colonoscopy (11/06/2020) Pathologist [facility] Colonoscopy no interpreta tion,abstr acted Anatomical Region Laterality Modality Other Historical Provider HEALTH MAINTENANCE Edited Result - Final * BRENT SCREENING DIGITAL (08/07/2019 5:46 PM EDT) Anatomical Region Laterality Modality Mammography 08/07/2019 12:5 9 PM EDT Narrative 08/07/2019 5:[address] [facility] Diagnostic Imaging Department [address] [place] [id number] Patient: ISIDRO GREENFIELD Marsha /Age/Sex: 1960 - 59 - F Unit#: [id number] Location/Status: SPDIMAM/REG CLI Mnemonic/Ordering Site: [facility] Ordering Physician: MORGAN DAVID MD Brent Screening Digital - 08/07/19 - EXAM: [facility] Screening Digital EXAM DATE AND TIME: 08/07/2019 1:24 PM HISTORY: Screening. Cousin had breast carcinoma. COMPARISON: 01/18/16, 01/13/15, 01/03/14 ([facility], [place], [place]) TECHNIQUE: CC and MLO views of both breasts were obtained using full field digital mammography. Bilateral digital breast tomosynthesis was performed in the MLO projection. Computer aided detection with the [employer] 7.2-H was employed. TISSUE DENSITY: b. There are scattered areas of fibroglandular density. FINDINGS: No suspicious masses, grouped microcalcifications, or areas of architectural distortion are seen. The skin and vascularity are unremarkable. IMPRESSION: Stable mammographic appearance of the breasts. No evidence of malignancy is seen. A negative mammogram in the presence of a clinically suspicious palpable abnormality does not preclude the possibility of malignancy or alter the indications for biopsy. BI-RADS: Category 1: Negative RECOMMENDATION(S): 1: Routine screening mammogram BILATERAL in 1 year. 43224, 35743 3341F, 7025F Dictating Physician: LUCIE DE LEON MD Electronically Signed by: LUCIE DE LEON MD Dic Date/Time: 08/07/191745 Sign date/Time: 08/07/191745 Procedure Note Lucie De Leon - 05/17/2022 [facility] Diagnostic Imaging Department [address] [place] [id number] Patient: ISIDRO GREENFIELD Marsha /Age/Sex: 1960 - 59 - F Unit#: [id number] [facility]onic[facility]Ordering Site: [facility] Ordering Physician: MORGAN DAVID MD [facility] Screening Digital - 08/07/19 - EXAM: [facility] Screening Digital EXAM DATE AND TIME: 08/07/2019 1:24 PM HISTORY: Screening. Cousin had breast carcinoma. COMPARISON: 01/18/16, 01/13/15, 01/03/14 ([facility], [place], [place]) TECHNIQUE: CC and MLO views of both breasts were obtained using fullfield digital mammography. Bilateral digital breast tomosynthesis was performedin the MLO projection. Computer aided detection with the [employer] 7.2-Hwas employed. TISSUE DENSITY: b. There are scattered areas of fibroglandular density. FINDINGS: No suspicious masses, grouped microcalcifications, or areas ofarchitectural distortion are seen. The skin and vascularity are unremarkable. IMPRESSION: Stable mammographic appearance of the breasts. No evidence of malignancyis seen. A negative mammogram in the presence of a clinically suspicious palpable abnormality does not preclude the possibility of malignancy or alter the indications for biopsy. BI-RADS: Category 1: Negative RECOMMENDATION(S): 1: Routine screening mammogram BILATERAL in 1 year. 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
== END 2024-11-26 11:22 | disposition home or self-care (01) ==
LOC: HO.HSMS 10:11
PROVIDERS: PCP Internal Medicine; Visit Provider Nurse Practitioner Family
DX: G47.33 Obstructive sleep apnea (adult) (pediatric) (principal); G47.19 Other hypersomnia; R20.2 Paresthesia of skin; R25.2 Cramp and spasm; G47.10 Hypersomnia, unspecified; R06.83 Snoring; Z82.0 Family history of epilepsy and other diseases of the nervous system; G25.81 Restless legs syndrome; G47.61 Periodic limb movement disorder
CPT/HCPCS: 99214

== ENCOUNTER 2024-11-26 10:10 | Outpatient (REF) | payer MEDICARE, SELFPAY ==
--- OUTSIDE RECORDS SUMMARY | 2023-11-21 03:30 | XMS_ITS | Continuity of Care Document ---
Author Organization [facility] Address [address] [place] [address] Dr [address] [place] [address] Phone Care Team Providers Care X Ray Tech Name Role Phone Lonnie WILLIAM, COMPA, JUANCARLOS, Mark Unavailable U navailable Procedures Procedure Date Offic Cons New/estab Mod-hi 60- CT & MA Surgical Stockings CVR Reveal Thigh High - Duplex Scan-extrem Veins; Comp- CT & [place] Advance Directives Directive Yes / No Effective Date File Name No Information Encounters Encounter Description Practice Location Reason(s) For Visit Diagnoses Date Provider Providers Copied on Encounter [facility], [address] [place] [address] Dr Goodman [address], [id number], [place] tel:[phone] [facility] No Information 4 Lonnie WILLIAM, COMPA, JUANCARLOS Flores. [address] [facility] [address], [place], [place], [id number] , [place]. tel:[phone] Referring Provider: DOES NOT HAVE REF. Offic Cons New/estab Mod-hi 60- CT & [place] [facility], [address] [place] [address] Dr Goodman [address], [id number], tel:[phone] [facility] Chronic venous hypertension (idiopathic) with other complications of bilateral lower extremityPain in left legPain in right legRestless legs syndromeCramp and spasm 4 Lonnie WILLIAM RVT, JUANCARLOS Flores. [address] [facility] [address], [facility], [place], [id number] , [place]. tel:[phone] [facility], [address] [facility] [address], [place], [id number], [place] tel:[phone] [facility] - [place] Pain in right legPain in left leg 4 Lonnie WILLIAM RVT, JUANCARLOS Flores. [address] [facility] [address], [facility] [place], [id number] , [place]. tel:[phone] Referring Provider: Liset Hurley[address], [address]. tel:[phone] Family History Family Member Type Diagnosis Age At Onset No Information Payers Payer name Insurance type Covered constitution party ID Delores ingram(s) [facility] CI [id number] Social History Type Description Quantity Date Captured Comments Sex Female Smoking Status No Information Chief Complaint And Reason For Visit No Information Reason For Referral Reason For Referral No Information Plan Of Treatment Date Type Action Status Goal Diet education completed Referral Ordered: Weight management: Referral to physician timeframe: 3 Months (related to Body mass index (BMI) 30.0-30.9, adult) ordered History Of Present Illness Encounter Date Complaint History Of Prese nt Illness No Information Functional Status Date Functional Assessmen t No Information Instructions Date Instruction Additional Infor mation Diet education Related to Body mass index (BMI) 30.0-30.9, adult Giving Encouragement to exercise Related to Body mass index (BMI) 30.0-30.9, adult Lifestyle education Related to B geena mass index (BMI) 30.0-30.9, adult Patient education booklet given Related to Chronic venous hypertension (idiopathic) with other complications of bilateral lower extremity Pre and post instruc tions reviewed and provided Related to Chronic venous hypertension (idiopathic) with other complications of bilateral lower extremity Assessments Type Assessment Date No Information Patient Care Teams Name Effective Dates (start - stop) Status Members No Information
[2024-11-26 14:40] LABS: MANUAL DIFF FLAG NO
[2024-11-26 14:45] LABS: Hematocrit 41.4 % (37.0-47.0); Hemoglobin 13.5 g/dl (12.0-16.0); Imm Gran Abs Auto 0.01 X10*3/uL (0.00-0.03); Imm Gran Pct Auto 0.2 % (0.0-0.4); Lymphocytes Absolute Auto 1.0 X10*3/uL (1.2-4.9); Mean Corpuscular HGB Conc 32.6 g/dl (31.0-35.0); Mean Corpuscular Hemoglobin 28.6 pg (27.0-33.0); Mean Corpuscular Volume 87.7 fL (80.0-98.0); NRBC Abs Auto 0.000 X10*3/uL (0.0-0.012); NRBC Pct Auto 0.0 /100WBC (0.0-0.2); Platelet Count 244 X10*3/uL (160-400); Red Blood Count 4.72 X10*6/uL (4.20-5.50); White Blood Count 4.4 X10*3/uL (4.8-10.8)
[2024-11-26 15:25] LABS: Alanine Aminotransferase 18 U/L (0-31); Albumin Level 4.6 g/dL (3.5-5.0); Alkaline Phosphatase 58 U/L (39-117); Anion Gap 12 (12-20); Aspartate Amino Transferase 16 U/L (5-31); Blood Urea Nitrogen 9 mg/dL (9-16); Calcium 9.4 mg/dL (8.4-10.2); Carbon Dioxide 28 mmol/L (22-29); Chloride 105 mmol/L (96-108); Estimated Glomerular Filt Rate > 60; Iron 50 mcg/dL (30-160); Magnesium 1.9 mg/dL (1.6-2.6); Percent Iron Saturation 18 % (15-50); Potassium 4.1 mmol/L (3.3-5.1); Sodium 141 mmol/L (135-145); Total Iron Binding Capacity 283 mcg/dL (228-428); Total Protein 7.0 g/dL (6.5-8.0); Unsaturated Iron Binding 233 ug/dL
[2024-11-26 15:48] LABS: Ferritin 126 ng/mL (10-250)
[2024-11-26 15:54] LABS: Folate 12.2 ng/mL (> or = 4.0); Vitamin B12 412 pg/mL (200-900)
[2024-12-02 01:19] LABS: Vitamin D 25-OH, D2 <4 ng/mL; Vitamin D 25-OH, D3 20 ng/mL; Vitamin D 25-OH, Total 20 ng/mL (30-100)
== END 2024-11-26 10:11 | disposition home or self-care (01) ==
LOC: HO.HKASLDS 10:10
PROVIDERS: PCP Internal Medicine; Visit Provider Nurse Practitioner Family
DX: G47.33 Obstructive sleep apnea (adult) (pediatric) (principal); G47.19 Other hypersomnia; G47.61 Periodic limb movement disorder; G25.81 Restless legs syndrome; D64.9 Anemia, unspecified; E55.9 Vitamin D deficiency, unspecified; I10 Essential (primary) hypertension; R20.2 Paresthesia of skin; R06.83 Snoring; Z82.0 Family history of epilepsy and other diseases of the nervous system
CPT/HCPCS: 36415; 80053; 82306; 82607; 82728; 82746; 83540; 83735; 83921; 84443; 85025